=== PATIENT | male | born 1985 | race Caucasian/White ===

== ENCOUNTER 2018-08-09 11:04 | Emergency (ER) | payer BC ==
--- OUTSIDE RECORDS SUMMARY | 2018-08-09 11:07 | XMS REPORT ---
:1985 [facility] Address [address] [place] [address] Dr. Meeks [address] [place] [address] Care Team Providers Name Role Phone Unavailable Unavailable Unavailable Problems This patient has no known problems. Allergies, Adverse Reactions, Alerts This patient has no known allergies or adverse reactions. Medications This patient has no known medications.
--- NOTE | 2018-08-09 12:36 | EDPHYS ---
Physician Documentation [facility] Name: Gucci Hinton Age: 33 yrs Sex: Male : 1985 Arrival Date: 08/09/2018 Time: 11:10 Bed 9 Private MD: Loy Chand ED Physician Roland Andrade HPI: 08/09 14:50 This 33 yrs old Male presents to ER via Wheelchair with complaints of Knee snw Pain. 14:50 The patient presents with pain, swelling. The complaints affect the right knee. snw Context: The problem was sustained at a bar or nightclub, resulted from slip and fall while 2-stepping, the patient can partially bear weight, using knee immobilizer. Onset: The symptoms/episode began/occurred suddenly, 2 week(s) ago, and became persistent. Associated signs and symptoms: Pertinent positives: swelling. Treatment prior to arrival includes: splinting the affected extremity. Severity of symptoms: At their worst the symptoms were mild. The patient has not experienced similar symptoms in the past. ED x 2, x-rays negative in both, no improvement. Historical: - Allergies: 11:59 No Known Allergies; aa5 - PMHx: 11:59 Hypertension; aa5 - PSHx: 11:59 None; aa5 - Immunization history:: Adult Immunizations unknown. - Social history:: Smoking status: Patient uses tobacco products, smokes one pack cigarettes per day. - Ebola Screening: : No symptoms or risks identified at this time. ROS: 14:48 Constitutional: Negative for fever, chills, and weight loss, Eyes: Negative for injury, snw pain, redness, and discharge, ENT: Negative for injury, pain, and discharge, Neck: Negative for injury, pain, and swelling, Cardiovascular: Negative for chest pain, palpitations, and edema, Respiratory: Negative for shortness of breath, cough, wheezing, and pleuritic chest pain, Abdomen/GI: Negative for abdominal pain, nausea, vomiting, diarrhea, and constipation, Back: Negative for injury and pain, : Negative for injury, bleeding, discharge, and swelling, Skin: Negative for injury, rash, and discoloration, Neuro: Negative for headache, weakness, numbness, tingling, and seizure. 14:48 MS/extremity: Positive for injury or acute deformity, arrives in knee immobilizer. Exam: 14:46 Constitutional: This is a well developed, well nourished patient who is awake, alert, snw and in no acute distress. Head/Face: Normocephalic, atraumatic. Eyes: Pupils equal round and reactive to light, extra-ocular motions intact. Lids and lashes normal. Conjunctiva and sclera are non-icteric and not injected. Cornea within normal limits. Periorbital areas with no swelling, redness, or edema. ENT: Nares patent. No nasal discharge, no septal abnormalities noted. Tympanic membranes are normal and external auditory canals are clear. Oropharynx with no redness, swelling, or masses, exudates, or evidence of obstruction, uvula midline. Mucous membranes moist. Neck: Trachea midline, no thyromegaly or masses palpated, and no cervical lymphadenopathy. Supple, full range of motion without nuchal rigidity, or vertebral point tenderness. No Meningismus. Chest/axilla: Normal chest wall appearance and motion. Nontender with no deformity. No lesions are appreciated. Cardiovascular: Regular rate and rhythm with a normal S1 and S2. No gallops, murmurs, or rubs. Normal PMI, no JVD. No pulse deficits. Respiratory: Lungs have equal breath sounds bilaterally, clear to auscultation and percussion. No rales, rhonchi or wheezes noted. No increased work of breathing, no retractions or nasal flaring. Abdomen/GI: Soft, non-tender, with normal bowel sounds. No distension or tympany. No guarding or rebound. No evidence of tenderness throughout. Back: No spinal tenderness. No costovertebral tenderness. Full range of motion. Skin: Warm, dry with normal turgor. Normal color with no rashes, no lesions, and no evidence of cellulitis. Neuro: Awake and alert, GCS 15, oriented to person, place, time, and situation. Cranial nerves II-XII grossly intact. Motor strength 5/5 in all extremities. Sensory grossly intact. Cerebellar exam normal. Normal gait. Psych: Awake, alert, with orientation to person, place and time. Behavior, mood, and affect are within normal limits. 14:46 Musculoskeletal/extremity: Extremities: grossly normal except: noted in the right knee: decreased ROM, swelling, ROM: limited active range of motion due to pain, in the right knee, Circulation is intact in all extremities. Sensation intact. Vital Signs: 11:59 BP 157 / 107; Pulse 94; Resp 18 S; Temp 97.5(TE); Pulse Ox 98% on R/A; Weight 90.72 kg aa5 (R); Height 5 ft. 4 in. (162.56 cm) (R); Pain 8/10; 11:59 Body Mass Index 34.33 (90.72 kg, 162.56 cm) aa5 MDM: 12:24 Patient medically screened. snw 14:49 Data reviewed: vital signs, nurses notes. Data interpreted: Pulse oximetry: on room air snw is 98 %. Interpretation: normal. Counseling: I had a detailed discussion with the patient and/or guardian regarding: the historical points, exam findings, and any diagnostic results supporting the discharge/admit diagnosis, the presence of at least one elevated blood pressure reading (>120/80) during this emergency department visit, the need for outpatient follow up, to return to the emergency department if symptoms worsen or persist or if there are any questions or concerns that arise at home. Special discussion: I have referred the patient to see his PCP for further evaluation of high blood pressure. Based on the history and exam findings, there is no indication for further emergent testing or inpatient evaluation. I discussed with the patient/guardian the need to see the orthopedic surgeon for further evaluation of the symptoms. I discussed with the patient/guardian the need to see the primary care provider for further evaluation of the symptoms. Administered Medications: No medications were administered Disposition: 08/09/18 12:35 Discharged to Home. Impression: Unspecified internal derangement of right knee. - Condition is Stable. - Discharge Instructions: Knee Immobilizer, Knee Sprain, RICE for Routine Care of Injuries. - Prescriptions for Diclofenac Sodium 75 mg Oral Tablet Sustained Release - take 1 tablet by ORAL route 2 times per day; 30 tablet. - Work release form, Medication Reconciliation Form, Thank You Letter, Antibiotic Education, Prescription Opioid Use form. - Follow up: Bernardino Joshua MD; When: 2 - 3 days; Reason: Recheck today's complaints, Continuance of care. Addendum: 08/11/2018 07:19 Co-signature as Attending Physician, Roland Andrade MD. r n Signatures: Kasie Mckeon, FORM MAKER PLASTER-C FORM MAKER PLASTER-Csnw Roland Andrade MD MD rn Calderon, Audri RN RN aa5 Kannan Hdz RN RN la1 Corrections: (The following items were deleted from the chart) 08/09 12:42 12:35 08/09/2018 12:35 Discharged to Home. Impression: Unspecified internal derangement la1 of right knee. Condition is Stable. Forms are Medication Reconciliation Form, Thank You Letter, Antibiotic Education, Prescription Opioid Use. Follow up: Dr. Bernardino Joshua; When: 2 - 3 days; Reason: Recheck today's complaints, Continuance of care. snw
--- NOTE | 2018-08-09 12:36 | ER ---
Nurse's Notes [facility] Name: Gucci Hinton Age: 33 yrs Sex: Male : 1985 Arrival Date: 08/09/2018 Time: 11:10 Bed 9 Private MD: Loy Chand Diagnosis: Unspecified internal derangement of right knee Presentation: 08/09 11:57 Presenting complaint: Patient states: "I hurt my knee dancing on July 30 and I aa5 already went to 2 ER's and they said I had no broken bones but I still can't even bend my knee". pt c/o right knee pain. Transition of care: patient was not received from another setting of care. Onset of symptoms was July 2018. Risk Assessment: Do you want to hurt yourself or someone else? Patient reports no desire to harm self or others. Initial Sepsis Screen: Does the patient meet any 2 criteria? No. Patient's initial sepsis screen is negative. Does the patient have a suspected source of infection? No. Patient's initial sepsis screen is negative. Care prior to arrival: None. 11:57 Method Of Arrival: Wheelchair aa5 11:57 Acuity: BELLA 4 aa5 Historical: - Allergies: 11:59 No Known Allergies; aa5 - PMHx: 11:59 Hypertension; aa5 - PSHx: 11:59 None; aa5 - Immunization history:: Adult Immunizations unknown. - Social history:: Smoking status: Patient uses tobacco products, smokes one pack cigarettes per day. - Ebola Screening: : No symptoms or risks identified at this time. Screenin:42 Abuse screen: Denies threats or abuse. Nutritional screening: No deficits noted. la1 Tuberculosis screening: No symptoms or risk factors identified. Fall Risk None identified. Assessment: 12:41 General: Appears in no apparent distress. Behavior is calm, cooperative. Pain: la1 Complains of pain in right knee. Neuro: Level of Consciousness is awake, alert, obeys commands, Oriented to person, place, time, situation. Musculoskeletal: Pt presents after 2 previous ER visits with negative xrays and knee immobilizer present. Vital Signs: 11:59 BP 157 / 107; Pulse 94; Resp 18 S; Temp 97.5(TE); Pulse Ox 98% on R/A; Weight 90.72 kg aa5 (R); Height 5 ft. 4 in. (162.56 cm) (R); Pain 8/10; 11:59 Body Mass Index 34.33 (90.72 kg, 162.56 cm) aa5 ED Course: 11:10 Patient arrived in ED. sb2 11:11 Loy Chand MD is Private Physician. sb2 11:58 Triage completed. aa5 11:58 Arm band placed on. aa5 12:24 Kasie Mckeon FNP-C [facility]. snw 12:24 Roland Andrade MD is Attending Physician. snw 12:25 Kannan Hdz, RN is Primary Nurse. la1 12:34 Bernardino Joshua MD is Referral Physician. snw 12:42 Call light in reach. la1 12:42 No provider procedures requiring assistance completed. Patient did not have IV access la1 during this emergency room visit. Administered Medications: No medications were administered Outcome: 12:35 Discharge ordered by . snw 12:42 Patient left the ED. la1 Signatures: Kasie Mckeon FNP-C FNP-Csnw Steffanie Munoz, RN RN aa5 Kannan Hdz, RN RN la1 Jazmín Eastman sb2
== END 2018-08-09 12:42 | disposition home or self-care (01) ==
LOC: ER 11:04
DX: M23.91 Unspecified internal derangement of right knee (principal); W01.0XXA Fall on same level from slipping, tripping and stumbling without subsequent striking against object, initial encounter; Y93.41 Activity, dancing; F17.210 Nicotine dependence, cigarettes, uncomplicated
CPT/HCPCS: 99281

== ENCOUNTER 2018-12-01 22:25 | Emergency (ER) | payer BC ==
--- OUTSIDE RECORDS SUMMARY | 2018-12-01 22:27 | XMS REPORT ---
:1985 Author Organization [facility] Address [address] [place] [address] Dr. M[address]ks [address] [place] [id number] Care Team Providers Name Role Phone Unavailable Unavailable Unavailable Problems This patient has no known problems. Allergies, Adverse Reactions, Alerts This patient has no known allergies or adverse reactions. Medications This patient has no known medications.
--- NOTE | 2018-12-02 00:18 | EDPHYS ---
Physician Documentation [facility] Name: Gucci Hinton Age: 33 yrs Sex: Male : 1985 Arrival Date: 12/01/2018 Time: 22:26 Bed 23 Private MD: Loy Chand ED Physician Cameron Spicer HPI: 12/01 23:00 This 33 yrs old Black Male presents to ER via Ambulatory with complaints of Flu cp Symptoms. 23:00 The patient or guardian reports cough, that is intermittent, with productive sputum. cp Onset: The symptoms/episode began/occurred 2 week(s) ago. Associated signs and symptoms: Pertinent positives: sore throat, ear pressure and decreased hearing. 23:00 Severity of symptoms: in the emergency department the symptoms are unchanged despite cp home interventions. Historical: - Allergies: 22:51 No Known Allergies; ca1 - Home Meds: 22:51 lisinopril Oral [Active]; ca1 - PMHx: 22:51 Hypertension; ca1 - PSHx: 22:51 R knee Surgery; ca1 - Immunization history:: Flu vaccine is not up to date. - Social history:: Smoking status: Patient uses tobacco products, smokes one pack cigarettes per day. - Ebola Screening: : No symptoms or risks identified at this time. ROS: 23:05 Constitutional: Negative for body aches, chills, fever, poor PO intake. cp 23:05 Eyes: Negative for injury, pain, redness, and discharge. cp 23:05 ENT: Positive for sore throat, Negative for drainage from ear(s), ear pain, difficulty swallowing, difficulty handling secretions. 23:05 Respiratory: Positive for cough, with yellow sputum, Negative for shortness of breath, wheezing. 23:05 Abdomen/GI: Negative for abdominal pain, vomiting, diarrhea, constipation. 23:05 Skin: Negative for rash. 23:05 Neuro: Negative for altered mental status, headache, weakness. 23:05 All other systems are negative. Exam: 23:15 Constitutional: The patient appears in no acute distress, alert, awake, cp non-diaphoretic, non-toxic, well developed, well nourished. 23:15 Head/Face: Normocephalic, atraumatic. cp 23:15 Eyes: Periorbital structures: appear normal, Conjunctiva: normal, no exudate, no injection, Lids and lashes: appear normal, bilaterally. 23:15 ENT: External ear(s): are unremarkable, Ear canal(s): are normal, clear, TM's: bulging, cp is not appreciated, bilaterally, erythema, that is mild, on the left, Examination of the other ear shows no obvious abnormality, Nose: is normal, Mouth: Lips: moist, Oral mucosa: moist, Posterior pharynx: Airway: no evidence of obstruction, patent, Tonsils: with erythema, no enlargement, no exudate, erythema, that is mild, exudate, is not appreciated, Voice: is normal. 23:15 Neck: ROM/movement: is normal, is supple, without pain, no range of motions cp limitations, no meningismus, no nuchal rigidity, Lymph nodes: no appreciated lymphadenopathy. 23:15 Chest/axilla: Inspection: normal, Palpation: is normal, no crepitus, no tenderness. 23:15 Cardiovascular: Rate: normal, Rhythm: regular, Edema: is not appreciated, JVD: is not appreciated. 23:15 Respiratory: the patient does not display signs of respiratory distress, Respirations: normal, no use of accessory muscles, no retractions, no splinting, no tachypnea, labored breathing, is not present, Breath sounds: decreased breath sounds, are not appreciated, stridor, is not appreciated, + upper airway congestion. wheezing: is not appreciated. 23:15 Abdomen/GI: Inspection: abdomen appears normal. 23:15 Back: pain, is absent, ROM is normal. 23:15 Skin: no rash present. 23:15 Neuro: Orientation: to person, place \T\ time. Mentation: is normal, Motor: moves all fours, strength is normal. Vital Signs: 22:51 BP 178 / 114; Pulse 93; Resp 18 S; Temp 98.7(O); Pulse Ox 97% on R/A; Weight 95.25 kg; ca1 Height 5 ft. 5 in. (165.10 cm); Pain 0/10; 23:15 BP 163 / 110; Pulse 95; Resp 19 S; Pulse Ox 99% on R/A; ca1 05/02 00:04 BP 156 / 102; Pulse 94; Resp 18 S; Temp 98.9(O); Pulse Ox 98% on R/A; ca1 00:24 BP 159 / 108; Pulse 95; Resp 19 S; Temp 98.9(O); Pulse Ox 99% on R/A; ca1 12/01 22:51 Body Mass Index 34.95 (95.25 kg, 165.10 cm) ca1 MDM: 12/01 22:45 Patient medically screened. cp 23:00 Differential diagnosis: bronchitis, URI, pneumonia, strep throat, otitis media, cp sinusitis. 12/02 00:15 Data reviewed: vital signs, nurses notes, lab test result(s), radiologic studies, plain cp films. 00:15 Test interpretation: by ED physician or midlevel provider: plain radiologic studies. ED cp course: chest xray negative for focal infiltrates. 12/01 22:57 Order name: Strep cp 12/01 22:57 Order name: Group A Streptococcus Rapid Sc EDFL 12/01 22:57 Order name: XRAY Chest Pa And Lat (2 Views) cp 12/01 23:35 Order name: Throat Culture EDFL Administered Medications: No medications were administered Disposition: 15:39 Co-signature as Attending Physician, Cameron Spicer MD I agree with the assessment and [facility] plan of care. Disposition: 12/02/18 00:17 Discharged to Home. Impression: Acute bronchitis, Otitis media, unspecified, left ear. - Condition is Stable. - Discharge Instructions: Acute Bronchitis, Adult, Otitis Media, Adult, [id number]. - Prescriptions for Tessalon Perles 100 mg Oral Capsule - take 1 capsule by ORAL route every 8 hours As needed; 15 capsule. Zithromax Z- Alirio 250 mg Oral Tablet - take 1 tablet by ORAL route as directed for 5 days Day 1 - take two (2) tablets one time. Day 2, 3, 4 , 5 take one (1) tablet once daily.; 6 tablet. Albuterol Sulfate 90 mcg/actuation - inhale 1-2 puff by INHALATION route every 4-6 hours; 1 Inhaler. - Medication Reconciliation Form, Thank You Letter, Antibiotic Education, Prescription Opioid Use form. - Follow up: Private Physician; When: 2 - 3 days; Reason: Worsening of condition. - Problem is new. - Symptoms are unchanged. Signatures: Dispatcher [employer] [facility] Nayan, Cameron, MD MD rupert Page, Cameron, PA PA cp Acob, Steph, RN RN ca1 Corrections: (The following items were deleted from the chart) 00:25 00:17 12/02/2018 00:17 Discharged to Home. Impression: Acute bronchitis; Otitis media, ca1 unspecified, left ear. Condition is Stable. Forms are Medication Reconciliation Form, Thank You Letter, Antibiotic Education, Prescription Opioid Use. Follow up: Private Physician; When: 2 - 3 days; Reason: Worsening of condition. Problem is new. Symptoms are unchanged. cp
--- NOTE | 2018-12-02 00:18 | ER ---
Nurse's Notes [facility] Name: Gucci Hinton Age: 33 yrs Sex: Male : 1985 Arrival Date: 12/01/2018 Time: 22:26 Bed 23 Private MD: Loy Chand Diagnosis: Acute bronchitis;Otitis media, unspecified, left ear Presentation: 12/01 22:49 Presenting complaint: Patient states: "I have cough, congestion, fever and clog on my ca1 left ear for 2 weeks now and it has gotten worse and worse. Transition of care: patient was not received from another setting of care. Onset of symptoms was December 01, 2018. Risk Assessment: Do you want to hurt yourself or someone else? Patient reports no desire to harm self or others. Initial Sepsis Screen: Does the patient meet any 2 criteria? No. Patient's initial sepsis screen is negative. Does the patient have a suspected source of infection? Yes: Productive cough/pneumonia. Care prior to arrival: None. 22:49 Method Of Arrival: Ambulatory ca1 22:49 Acuity: BELLA 4 ca1 Triage Assessment: 22:51 General: Appears in no apparent distress. comfortable, Behavior is calm, cooperative, ca1 appropriate for age. Pain: Denies pain. EENT:. Historical: - Allergies: 22:51 No Known Allergies; ca1 - Home Meds: 22:51 lisinopril Oral [Active]; ca1 - PMHx: 22:51 Hypertension; ca1 - PSHx: 22:51 R knee Surgery; ca1 - Immunization history:: Flu vaccine is not up to date. - Social history:: Smoking status: Patient uses tobacco products, smokes one pack cigarettes per day. - Ebola Screening: : No symptoms or risks identified at this time. Screenin:54 Abuse screen: Denies threats or abuse. Denies injuries from another. Nutritional ca1 screening: No deficits noted. Tuberculosis screening: No symptoms or risk factors identified. Fall Risk None identified. Assessment: 22:54 General: Appears in no apparent distress. comfortable, Behavior is calm, cooperative, ca1 appropriate for age. Pain: Denies pain. Neuro: Level of Consciousness is awake, alert, obeys commands. Cardiovascular: Heart tones S1 S2 present Capillary refill < 3 seconds Patient's skin is warm and dry. Respiratory: Reports cough that is productive, since 2 weeks ago Airway is patent Respiratory effort is even, unlabored, Respiratory pattern is regular, symmetrical, Breath sounds are clear bilaterally. GI: No deficits noted. No signs and/or symptoms were reported involving the gastrointestinal system. : No deficits noted. No signs and/or symptoms were reported regarding the genitourinary system. EENT: Ear canal clear on left ear and right ear Nares with drainage noted Throat is pink Reports nasal congestion since 2 weeks ago nasal discharge that is yellow. Derm: Skin is intact, is healthy with good turgor, Skin is pink, warm \\T\\ dry. Musculoskeletal: Circulation, motion, and sensation intact. Capillary refill < 3 seconds. 12/02 00:02 Reassessment: Patient appears in no apparent distress at this time. Patient and/or ca1 family updated on plan of care and expected duration. Pain level reassessed. Patient is alert, oriented x 3, equal unlabored respirations, skin warm/dry/pink. 00:24 Reassessment: Patient appears in no apparent distress at this time. Patient is alert, ca1 oriented x 3, equal unlabored respirations, skin warm/dry/pink. Home with significant other. Vital Signs: 12/01 22:51 BP 178 / 114; Pulse 93; Resp 18 S; Temp 98.7(O); Pulse Ox 97% on R/A; Weight 95.25 kg; ca1 Height 5 ft. 5 in. (165.10 cm); Pain 0/10; 23:15 BP 163 / 110; Pulse 95; Resp 19 S; Pulse Ox 99% on R/A; ca1 12/02 00:04 BP 156 / 102; Pulse 94; Resp 18 S; Temp 98.9(O); Pulse Ox 98% on R/A; ca1 00:24 BP 159 / 108; Pulse 95; Resp 19 S; Temp 98.9(O); Pulse Ox 99% on R/A; ca1 12/01 22:51 Body Mass Index 34.95 (95.25 kg, 165.10 cm) ca1 ED Course: 12/01 22:26 Patient arrived in ED. am2 22:26 Loy Chand MD is Private Physician. am2 22:44 Steph Alonso, DILMA is Primary Nurse. ca1 22:45 Cameron Almaguer PA is PHCP. cp 22:45 Cameron Spicer MD is Attending Physician. cp 22:51 Triage completed. ca1 22:51 Arm band placed on right wrist. ca1 22:54 Patient has correct armband on for positive identification. Bed in low position. Call ca1 light in reach. Side rails up X 1. Pulse ox on. NIBP on. Warm blanket given. 23:33 Patient moved to radiology via wheelchair. kw 23:33 X-ray completed. Patient tolerated procedure well. kw 23:33 Patient moved back from radiology. kw 23:34 XRAY Chest Pa And Lat (2 Views) In Process Unspecified. EDMS 12/02 00:25 No provider procedures requiring assistance completed. Patient did not have IV access ca1 during this emergency room visit. Administered Medications: No medications were administered Outcome: 00:17 Discharge ordered by MD. cp 00:25 Discharged to home ambulatory, with significant other. ca1 00:25 Condition: stable 00:25 Discharge instructions given to patient, Instructed on discharge instructions, follow up and referral plans. medication usage, Demonstrated understanding of instructions, follow-up care, medications, Prescriptions given X 3. 00:25 Patient left the ED. ca1 Signatures: Dispatcher [employer]OK Melisa Matthews Corey, RADNOLPH PA Kailey Alejandre am2 Steph Alonso, RN RN ca1
--- NOTE | 2018-12-02 08:14 | RAD REPORT ---
EXAM DESCRIPTION: RAD - Chest Pa And Lat (2 Views) - 12/01/2018 11:34 pm CLINICAL HISTORY: COUGH Chest pain. COMPARISON: No comparisons FINDINGS: The lungs are clear. The heart is normal in size. No displaced fractures. IMPRESSION: No acute or concerning finding suspected.
== END 2018-12-02 00:25 | disposition home or self-care (01) ==
LOC: ER 22:25
DX: J20.9 Acute bronchitis, unspecified (principal); H66.92 Otitis media, unspecified, left ear; I10 Essential (primary) hypertension; F17.210 Nicotine dependence, cigarettes, uncomplicated
CPT/HCPCS: 71046; 87070; 87081; 99283